=== PATIENT | male | born 1950 | race Caucasian/White ===

== ENCOUNTER 2018-11-05 11:27 | Day surgery (SDC) | payer MEDICARE, BC ==
[2018-11-05] MEDS: Polymyxin B/Trimethoprim 10 ML Bottle EYERT SCH ×4 (11:50→13:38)
[2018-11-05] MEDS: Brimonidine 0.2% Ophth Soln 15 ML Bottle EYERT SCH ×2 (11:55→12:35)
[2018-11-05] MEDS: Phenylephrine 2.5% Ophth Soln 2 ML Bot EYERT SCH ×5 (12:00→13:14)
[2018-11-05] MEDS: Tropicamide 1% Ophth Soln 15 ML Bottle EYERT SCH ×4 (12:05→12:45)
--- NOTE | 2018-11-05 12:24 | PCM.PREANE ---
Preanesthetic Assessment - Procedure Proposed Procedure: Right eye cataract extraction - Anesthesia/Transfusion/Family Hx Anesthesia History: No Prior Anesthesia Family History of Anesthesia Reaction: No Transfusion History: No Prior Transfusion(s) Intubation History: Unknown - Review of Systems General: No Symptoms Pulmonary: No Symptoms Cardiovascular: No Symptoms Gastrointestinal: No Symptoms Neurological: No Symptoms, Other (left leg amputation ) Other: Reports: Thyroid Problems - Physical Assessment NPO Status Date: 11/05/18 NPO Status Time: 06:45 Pulse: 72 O2 Sat by Pulse Oximetry: 96 Respiratory Rate: 16 Blood Pressure: 144/79 Temperature: 36.9 C Height: 1.68 m Weight: 77.111 kg ASA Class: 2 Mental Status: Alert & Oriented x3 Airway Class: Mallampati = 2 Dentition: Reports: Normal Dentition, [place](s) Thyro-Mental Finger Breadths: 3 Mouth Opening Finger Breadths: 5 ROM/Head Extension: Full Lungs: Clear to Auscultation, Normal Respiratory Effort Cardiovascular: Regular Rate, Regular Rhythm - Allergies Allergies/Adverse Reactions: Allergies Allergy/AdvReac Type Severity Reaction Status Date / Time No Known Allergies Allergy Verified 11/04/18 12:44 - Blood Blood Available: No - Anesthesia Plan Pre-Op Medication Ordered: None - Acknowledgements Anesthesia Type Planned: MAC Pt an Appropriate Candidate for the Planned Anesthesia: Yes Alternatives and Risks of Anesthesia Discussed w Pt/Guardian: Yes Pt/Guardian Understands and Agrees with Anesthesia Plan: Yes PreAnesthesia Questionnaire - HOME MEDS Home Medications: Home Meds Doxazosin Mesylate [Cardura] 1 mg PO BEDTIME 11/04/18 [History] Levothyroxine [Synthroid] 50 mcg PO DAILY 11/04/18 [History] Lisinopril/Hydrochlorothiazide [Lisinopril-HCTZ 10-12.5 MG] 1 tab PO DAILY 11/04 [History] - CURRENT (IN HOUSE) MEDS Current Meds: Current Medications Brimonidine Tartrate (Brimonidine Tartrate 0.2% Oph Soln) 0 ml EYERT ASDIRECTED GUILLE Stop: 11/05/18 18:00 Last Admin: 11/05/18 11:55 Dose: 1 drop Cefuroxime Sodium (Zinacef) 0 mg EYERT ASDIRECTED GUILLE Stop: 11/05/18 18:00 Lidocaine HCl (Xylocaine-Mpf 1%) 1 ml INJECT ASDIRECTED GUILLE Stop: 11/05/18 18:00 Phenylephrine HCl (Joseph-Synephrine 2.5% Ophth Soln) 0 ml EYERT ASDIRECTED GUILLE Stop: 11/05/18 18:00 Last Admin: 11/05/18 12:00 Dose: 1 drop Pilocarpine HCl (Pilocar 4% Ophth Soln) 0 ml EYERT ASDIRECTED GUILLE Stop: 11/05/18 18:00 Polymyxin/Trimethoprim Sulfate (Polytrim Ophth Soln) 0 ml EYERT ASDIRECTED GUILLE Stop: 11/05/18 18:00 Last Admin: 11/05/18 11:50 Dose: 1 drop Tetracaine HCl (Tetracaine 0.5% Steri-Unit Malina) 0 ml EYERT ASDIRECTED GUILLE Stop: 11/05/18 18:00 Tropicamide (Mydriacyl 1% Oph Soln) 0 ml EYERT ASDIRECTED GUILLE Stop: 11/05/18 18:00 Last Admin: 11/05/18 12:15 Dose: 1 drop Discontinued Medications Brimonidine Tartrate (Alphagan 0.2% Ophth Soln) 0 ml EYERT ASDIRECTED GUILLE Stop: 11/05/18 18:00
[2018-11-05] MEDS: Brimonidine 0.2% Ophth Soln 5 ML Bottle EYERT SCH ×2 (12:28→13:38)
[2018-11-05] MEDS: Cefuroxime 10 MG/ML SYRINGE EYERT SCH ×2 (12:28→13:37)
[2018-11-05] MEDS: Lidocaine 1% PF 2 ML SDV INJECT SCH ×2 (12:28→13:25)
[2018-11-05] MEDS: Tetracaine HCl/PF 0.5% 4 ML Bottle EYERT SCH ×5 (12:28→13:32)
[2018-11-05] MEDS: Pilocarpine 4% Ophth Soln 15 ML Bot EYERT SCH ×2 (12:28→13:38)
--- NOTE | 2018-11-05 13:43 | PCM.POSTAN ---
POST ANESTHESIA ASSESSMENT - MENTAL STATUS Mental Status: Alert - RESPIRATORY Respiratory Status: Respiratory Rate WNL, Airway Patent - CARDIOVASCULAR CV Status: Pulse Rate WNL, Blood Pressure Stable - GASTROINTESTINAL GI Status: No Symptoms - POST OP HYDRATION Hydration Status: Adequate & Stable
--- NOTE | 2018-11-05 13:44 | PCM48HPAN ---
Post Anesthesia Note - EVALUATION WITHIN 48HRS OF ANESTHETIC Vital Signs in Normal Range: Yes Patient Participated in Evaluation: Yes Respiratory Function Stable: Yes Airway Patent: Yes Cardiovascular Function Stable: Yes Hydration Status Stable: Yes Pain Control Satisfactory: Yes Nausea and Vomiting Control Satisfactory: Yes Mental Status Recovered: Yes Pulse Rate: 72 Resp Rate: 16 Temperature: 36.9 C Blood Pressure: 144/79
== END 2018-11-05 13:55 | disposition home or self-care (01) ==
LOC: JD.SDS 11:27
PROVIDERS: ATTEND Ophthalmology
DX: H25.813 Combined forms of age-related cataract, bilateral (principal); H02.834 Dermatochalasis of left upper eyelid; H02.831 Dermatochalasis of right upper eyelid; H16.103 Unspecified superficial keratitis, bilateral; H16.223 Keratoconjunctivitis sicca, not specified as Sjogren's, bilateral; I10 Essential (primary) hypertension; E07.9 Disorder of thyroid, unspecified; M19.90 Unspecified osteoarthritis, unspecified site; Z87.891 Personal history of nicotine dependence; Z83.518 Family history of other specified eye disorder; Z79.899 Other long term (current) drug therapy
CPT/HCPCS: 66984; C1780; J0697; J2001

== ENCOUNTER 2018-11-30 10:08 | Day surgery (SDC) | payer MEDICARE, BC ==
[~2018-11-30 10:08] MED LIST: Brimonidine 0.2% Ophth Soln 5 ML Bottle EYELF SCH; Cefuroxime 10 MG/ML SYRINGE EYELF SCH; Lidocaine 1% PF 2 ML SDV INJECT SCH; Pilocarpine 4% Ophth Soln 15 ML Bot EYELF SCH
[2018-11-30] MEDS: Polymyxin B/Trimethoprim 10 ML Bottle EYELF SCH ×3 (11:40→13:20)
[2018-11-30] MEDS: Brimonidine 0.2% Ophth Soln 15 ML Bottle EYELF SCH ×2 (11:45→12:25)
[2018-11-30] MEDS: Phenylephrine 2.5% Ophth Soln 2 ML Bot EYELF SCH ×5 (11:50→12:59)
[2018-11-30] MEDS: Tropicamide 1% Ophth Soln 15 ML Bottle EYELF SCH ×4 (11:55→12:35)
--- NOTE | 2018-11-30 11:57 | PCM.PREANE ---
Preanesthetic Assessment - Anesthesia/Transfusion/Family Hx Anesthesia History: Prior Anesthesia Without Reaction Family History of Anesthesia Reaction: No Transfusion History: Prior Transfusion Without Reaction (pt thinks might have had a transfusion with ([place])DEANNA 50 yrs ago) Intubation History: Unknown - Review of Systems General: No Symptoms Pulmonary: No Symptoms Cardiovascular: No Symptoms Gastrointestinal: No Symptoms Neurological: No Symptoms Other: Reports: None - Physical Assessment NPO Status Date: 11/30/18 NPO Status Time: 06:30 Pulse: 68 O2 Sat by Pulse Oximetry: 97 Respiratory Rate: 16 Blood Pressure: 145/81 Vital Signs: Last Vital Signs Temp 36.7 C 11/30/18 11:35 Pulse 68 11/30/18 11:35 Resp 16 11/30/18 11:35 BP 145/81 H 11/30/18 11:35 Pulse Ox 97 11/30/18 11:35 Height: 1.68 m Weight: 81.647 kg ASA Class: 2 Mental Status: Alert & Oriented x3 Airway Class: Mallampati = 1 Dentition: Reports: Normal Dentition Thyro-Mental Finger Breadths: 3 Mouth Opening Finger Breadths: 3 ROM/Head Extension: Full Lungs: Clear to Auscultation, Normal Respiratory Effort Cardiovascular: Regular Rate, Regular Rhythm - Allergies Allergies/Adverse Reactions: Allergies Allergy/AdvReac Type Severity Reaction Status Date / Time No Known Allergies Allergy Verified 11/27/18 13:38 - Acknowledgements Anesthesia Type Planned: MAC Pt an Appropriate Candidate for the Planned Anesthesia: Yes Alternatives and Risks of Anesthesia Discussed w Pt/Guardian: Yes Pt/Guardian Understands and Agrees with Anesthesia Plan: Yes PreAnesthesia Questionnaire HEENT History: Reports: Cataract Cardiovascular History: Reports: Hypertension Respiratory History: Reports: None Gastrointestinal History: Reports: GERD Genitourinary History: Reports: None Musculoskeletal History: Reports: Arthritis Neurological History: Reports: None Psychiatric History: Reports: None Endocrine/Metabolic History: Reports: Hypothyroidism Hematologic History: Reports: None Immunologic History: Reports: None Oncologic (Cancer) History: Reports: None - Past Surgical History Head Surgeries/Procedures: Reports: None HEENT Surgical History: Reports: Cataract Surgery Cardiovascular Surgical History: Reports: None Respiratory Surgical History: Reports: None GI Surgical History: Reports: Colonoscopy, Hernia, Inguinal Male Surgical History: Reports: None Endocrine Surgical History: Reports: None Neurological Surgical History: Reports: C-Spine Musculoskeletal Surgical History: Reports: Amputation ((L) AKA) - SUBSTANCE USE Smoking Status *Q: Former Smoker - HOME MEDS Home Medications: Home Meds Doxazosin Mesylate [Cardura] 1 mg PO BEDTIME 11/04/18 [History] Levothyroxine [Synthroid] 50 mcg PO DAILY 11/04/18 [History] Lisinopril/Hydrochlorothiazide [Lisinopril-HCTZ 10-12.5 MG] 1 tab PO DAILY 11/04 [History] - CURRENT (IN HOUSE) MEDS Current Meds: Current Medications Brimonidine Tartrate (Brimonidine Tartrate 0.2% Ophth Soln) 0 ml EYELF ASDIRECTED GUILLE Stop: 11/30/18 18:00 Last Admin: 11/30/18 11:45 Dose: 1 drop Cefuroxime Sodium (Zinacef) 0 mg EYELF ASDIRECTED GUILLE Stop: 11/30/18 18:00 Lidocaine HCl (Xylocaine-Mpf 1%) 0 ml INJECT ASDIRECTED GUILLE Stop: 11/30/18 18:00 Phenylephrine HCl (Joseph-Synephrine 2.5% Ophth Soln) 0 ml EYELF ASDIRECTED GUILLE Stop: 11/30/18 18:00 Last Admin: 11/30/18 11:50 Dose: 1 drop Pilocarpine HCl (Pilocar 4% Ophth Soln) 0 ml EYELF ASDIRECTED GUILLE Stop: 11/30/18 18:00 Polymyxin/Trimethoprim Sulfate (Polytrim Ophth Soln) 0 ml EYELF ASDIRECTED GUILLE Stop: 11/30/18 18:00 Last Admin: 11/30/18 11:40 Dose: 1 drop Tetracaine HCl (Tetracaine 0.5% Steri-Unit Malina) 0 ml EYELF ASDIRECTED GUILLE Stop: 11/30/18 18:00 Tropicamide (Mydriacyl 1% Ophth Soln) 0 ml EYELF ASDIRECTED GUILLE Stop: 11/30/18 18:00 Discontinued Medications Brimonidine Tartrate (Alphagan 0.2% Ophth Soln) 0 ml EYELF ASDIRECTED GUILLE Stop: 11/30/18 18:00
[2018-11-30] MEDS: Tetracaine HCl/PF 0.5% 4 ML Bottle EYELF SCH ×4 (12:40→13:07)
[2018-11-30] MEDS ORDERED: Lidocaine 1% with EPINEPHrine 1:100,000 20 ML MDV ONE (12:49)
--- NOTE | 2018-11-30 13:22 | PCM48HPAN ---
Post Anesthesia Note - EVALUATION WITHIN 48HRS OF ANESTHETIC Vital Signs in Normal Range: Yes Patient Participated in Evaluation: Yes Respiratory Function Stable: Yes Airway Patent: Yes Cardiovascular Function Stable: Yes Hydration Status Stable: Yes Pain Control Satisfactory: Yes Nausea and Vomiting Control Satisfactory: Yes Mental Status Recovered: Yes Pulse Rate: 61 SaO2: 100 Resp Rate: 16 Temperature: 37 C Blood Pressure: 122/76
== END 2018-11-30 13:30 | disposition home or self-care (01) ==
LOC: JD.SDS 10:08
PROVIDERS: ATTEND Ophthalmology
DX: H25.812 Combined forms of age-related cataract, left eye (principal); H02.834 Dermatochalasis of left upper eyelid; H02.831 Dermatochalasis of right upper eyelid; H16.103 Unspecified superficial keratitis, bilateral; H16.223 Keratoconjunctivitis sicca, not specified as Sjogren's, bilateral; K21.9 Gastro-esophageal reflux disease without esophagitis; Z96.1 Presence of intraocular lens; M19.90 Unspecified osteoarthritis, unspecified site; I10 Essential (primary) hypertension; E03.9 Hypothyroidism, unspecified; Z87.891 Personal history of nicotine dependence; Z98.890 Other specified postprocedural states; Z79.899 Other long term (current) drug therapy
CPT/HCPCS: 66984; J0697; J2001; C1780

== ENCOUNTER 2022-08-13 06:30 | Day surgery (SDC) | payer MEDICARE, OTHER ==
[~2022-08-13 06:30] MED LIST changes: -Brimonidine 0.2% Ophth Soln 5 ML Bottle EYELF SCH; -Cefuroxime 10 MG/ML SYRINGE EYELF SCH; +Lactated Ringers 1,000 ML IV SCH; -Lidocaine 1% PF 2 ML SDV INJECT SCH; +Lidocaine 1%/Sod Bicarbonate in NS 8.4% 1 ML Syringe IDERM PRN; -Pilocarpine 4% Ophth Soln 15 ML Bot EYELF SCH; +Sodium Chloride 0.9% 10 ML Syringe FLUSH PRN; +Sodium Chloride 0.9% 10 ML Syringe FLUSH SCH
[2022-08-13] MEDS ORDERED: Lactated Ringers 1,000 ML IV SCH (07:15)
[2022-08-13] MEDS ORDERED: Lidocaine 1% 4 ML ONE (07:32)
[2022-08-13] MEDS ORDERED: Propofol 200 MG/20 ML SDV ONE (07:33)
== END 2022-08-13 09:30 | disposition home or self-care (01) ==
LOC: JD.SDS 06:30
PROVIDERS: ATTEND Surgery
DX: D12.5 Benign neoplasm of sigmoid colon (principal); K57.30 Diverticulosis of large intestine without perforation or abscess without bleeding; I10 Essential (primary) hypertension; N40.0 Benign prostatic hyperplasia without lower urinary tract symptoms; R73.01 Impaired fasting glucose; K44.9 Diaphragmatic hernia without obstruction or gangrene; E78.5 Hyperlipidemia, unspecified; E03.9 Hypothyroidism, unspecified; E55.9 Vitamin D deficiency, unspecified; D64.9 Anemia, unspecified; Z79.899 Other long term (current) drug therapy; Z79.890 Hormone replacement therapy; Z98.890 Other specified postprocedural states; Z87.891 Personal history of nicotine dependence
CPT/HCPCS: 45385; 88305; J2704; J7120; J3490